=== PATIENT | female | born 1985 | race Caucasian/White ===

== ENCOUNTER 2018-01-04 01:40 | Emergency (ER) | payer SELFPAY ==
--- NOTE | 2018-01-04 01:46 | EDPHY ---
H & P Time Seen by Provider: 01/04/18 01:45 HPI/ROS: HPI CHIEF COMPLAINT: Medical clearance for assisted, skin lesion. HISTORY OF PRESENT ILLNESS: 32-year-old female brought to the emergency room for medical clearance for assisted. Patient states that she has a skin lesion over her left dorsal index finger, additionally right arm. She has been treating this with naturopathic remedies including silver and tea tree oil. Patient denies any fever, denies any significant pain. I offered her Keflex here in emergency room however she is decline. She states she does not take any antibiotics. She appears well nontoxic no acute distress Past Medical History: Hepatitis C Past Surgical History: No significant surgical history Social History: Homeless. Family History: Noncontributory ROS REVIEW OF SYSTEMS: 10 Systems were reviewed and negative with the exception of the elements mentioned in the history of present illness. Exam Constitutional triage nursing summary reviewed, vital signs reviewed, awake/ alert. Eyes normal conjunctivae and sclera, EOMI, PERRLA. HENT normal inspection, atraumatic, moist mucus membranes, no epistaxis, neck supple/ no meningismus, no raccoon eyes. Respiratory clear to auscultation bilaterally, normal breath sounds, no respiratory distress, no wheezing. Cardiovascular rate normal, regular rhythm, no murmur, no edema, distal pulses normal. Gastrointestinal soft, non-tender, no rebound, no guarding, normal bowel sounds, no distension, no pulsatile mass. Genitourinary no CVA tenderness. Musculoskeletal no midline vertebral tenderness, full range of motion, no calf swelling, no tenderness of extremities, no meningismus, good pulses, neurovascularly intact. Skin left hand dorsal index finger scabbed lesion 2 cm x 2 cm, additionally other scabbed lesion right lateral humerus. 3 cm x 3 cm. No significant cellulitis. Mild redness around the scabs. No abscess. pink, warm, & dry, no rash, skin atraumatic. Neurologic awake, alert and oriented x 3, AAOx3, moves all 4 extremities equally, motor intact, sensory intact, CN II-XII intact, normal cerebellar, normal vision, normal speech. Psychiatric normal mood/affect. Heme/Lymph/Immune no lymphadenopathy. Differential Diagnosis: Includes but is not limited to in a particular order skin picking, IV drug site infection, cellulitis, abscess Medical Decision Making: Plan for this patient I did offer warm compresses and Keflex. However patient declined she states she will not take any antibiotics. She appears well nontoxic no acute distress with no vital sign instability. No overt sepsis. Patient is medically cleared for assisted. Keflex prescription be providing case she changes her mind. Source: Patient, Police Departure - Departure Disposition: Home, Routine, Self-Care Clinical Impression: Cellulitis Condition: Good Instructions: Cellulitis (ED) Additional Instructions: 1. Medical clearance for assisted.
[2018-01-04 01:54] VITALS: BP 103/67
== END 2018-01-04 01:58 ==
DX: L03.012 Cellulitis of left finger (principal); L03.113 Cellulitis of right upper limb; B18.2 Chronic viral hepatitis C; Z59.0 Homelessness